=== PATIENT | male | born 1975 | race Caucasian/White ===

== ENCOUNTER 2019-02-04 20:54 | Emergency (ER) | payer MEDICAID ==
[~2019-02-04] VITALS: Ht 167.6 cm; Wt 77.1 kg
[2019-02-04 21:06] VITALS: BP 137/83
--- NOTE | 2019-02-04 21:11 | NUR ---
PT TAKEN TO BED 8
--- NOTE | 2019-02-04 21:15 | NUR ---
43 YO MALE COMES TO ER FOR C/O GENERALIZED PAIN. PT STATES, " IM HURTING ALL OVER." PT MUMBLING AND GROANING, STATES PAIN IS 10/10 ALL OVER. PT DENIES FEVER AND CHILLS. PT AOX2 MILD WEAKNESS NOTED TO BUE, BLE. LUNGS CLEAR EVEN UNLABORED. ABD SOFT NON DISTENDED. PT DENIES N/V/D. SKIN WARM PINK DRY INTACT. WILL UPDATE ER MD. WILL CONTINUE TO OBSERVE. HX: DENIES MEDICAL HX RX:DENIES PT STATES HE SMOKED MARIJUANA A COUPLE HOURS AGO.
[2019-02-04 21:33] LABS: BASOPHILS # (AUTO) 0.1 K/uL (0.00-0.22); BASOPHILS % (AUTO) 0.8 % (0.0-2.0); EOSINOPHILS # (AUTO) 0.2 K/uL (0-0.4); HEMATOCRIT 43.6 % (36-52); HEMOGLOBIN 14.5 g/dL (12.0-18.0); LYMPHOCYTES # (AUTO) 2.6 K/uL (2.0-11.5); LYMPHOCYTES % (AUTO) 21.7 % (20.5-51.1); MEAN CORPUSCULAR HEMOGLOBIN 32 pg (27-31); MEAN CORPUSCULAR HGB CONC 33 g/dL (33-37); MEAN CORPUSCULAR VOLUME 96.7 fL (80-94); MONOCYTES # (AUTO) 0.9 K/uL (0.8-1.0); MONOCYTES % (AUTO) 7.2 % (1.7-9.3); NEUTROPHILS # (AUTO) 8.3 K/uL (1.8-7.7); NEUTROPHILS % (AUTO) 68.3 % (42.2-75.2); PLATELET COUNT (AUTO) 288 K/uL (140-450); RED BLOOD CELL COUNT(AUTO) 4.51 MIL/uL (4.20-6.10); RED CELL DISTRIBUTION WIDTH 13.3 % (11.6-13.7); WHITE BLOOD COUNT (AUTO) 12.2 K/uL (4.8-10.8)
[2019-02-04 21:42] LABS: ANION GAP 11.8 (8-16); CARBON DIOXIDE 27.9 mmol/L (21-32); CREATININE 1.1 mg/dL (0.7-1.3); POTASSIUM 3.7 mmol/L (3.5-5.1)
[2019-02-04 21:48] LABS: ALBUMIN 3.2 g/dL (3.4-5.0); TOTAL BILIRUBIN 0.3 mg/dL (0.0-1.0)
--- NOTE | 2019-02-04 22:25 | NUR ---
Dr. Coughlin evaluating patient at bedside.
[2019-02-04 22:59] VITALS: BP 130/80
--- NOTE | 2019-02-04 22:59 | NUR ---
Patient discharged with v/s stable. Written and verbal after care instructions given and explained. Patient alert, oriented and verbalized understanding of instructions. Ambulatory with steady gait. All questions addressed prior to discharge. ID band removed. Patient advised to follow up with PMD. Rx of PREDNISONE, MOTRIN given. Patient educated on indication of medication including possible reaction and side effects. Opportunity to ask questions provided and answered.
--- NOTE | 2019-02-04 22:59 | NUR ---
[employer] PACKET PROVIDED TO PT. WHEN ASKED, PT STATED THAT HE WILL "GO BACK TO STREETS." BUS PASS PROVIDED. PT WITH APPROPRIATE CLOTHING FOR WEATHER.
== END 2019-02-04 22:59 | disposition home or self-care (01) ==
LOC: MED 20:54
DX: R53.1 Weakness (principal); R05 Cough; R42 Dizziness and giddiness; F17.200 Nicotine dependence, unspecified, uncomplicated
CPT/HCPCS: 36415; 80053; 83690; 85025; 99283